=== PATIENT | female | born 1955 | race Two or more races ===

== ENCOUNTER 2018-04-09 11:06 | Outpatient (CLI) | payer OTHER | END 2018-04-09 12:22 | disposition home or self-care (01) | LOC: NUCLEAR 11:06 | DX: D35.1 Benign neoplasm of parathyroid gland (principal) | CPT/HCPCS: 78070; A9500 ==

== ENCOUNTER → 2022-11-18 | Outpatient (CLI) | payer OTHER | END | disposition home or self-care (01) | LOC: RAD 13:09 | PROVIDERS: ATTEND Internal Medicine | DX: M79.672 Pain in left foot (principal); M19.90 Unspecified osteoarthritis, unspecified site ==

== ENCOUNTER 2023-11-30 14:56 | Outpatient (CLI) | payer OTHER | END 2023-11-30 15:00 | disposition home or self-care (01) | LOC: RAD 14:56 | PROVIDERS: ATTEND Physical Medicine & Rehabilitation | DX: M54.51 Vertebrogenic low back pain (principal) ==

== ENCOUNTER 2023-12-14 08:12 | Outpatient (CLI) | payer OTHER | END 2023-12-14 08:29 | disposition home or self-care (01) | LOC: MAMO-SONO 08:12 | PROVIDERS: ATTEND Internal Medicine | DX: N60.11 Diffuse cystic mastopathy of right breast (principal); N60.12 Diffuse cystic mastopathy of left breast; Z12.31 Encounter for screening mammogram for malignant neoplasm of breast ==

== ENCOUNTER 2024-12-26 13:04 | Outpatient (CLI) | payer OTHER | END 2024-12-26 13:14 | disposition home or self-care (01) | LOC: MAMO-SONO 13:04 | PROVIDERS: ATTEND Internal Medicine | DX: N60.11 Diffuse cystic mastopathy of right breast (principal); N60.12 Diffuse cystic mastopathy of left breast; Z12.31 Encounter for screening mammogram for malignant neoplasm of breast ==

== ENCOUNTER → 2025-01-04 09:46 | Outpatient (CLI) | payer OTHER | END | disposition home or self-care (01) | LOC: NUCLEAR 09:46 | PROVIDERS: ATTEND Internal Medicine | DX: M81.0 Age-related osteoporosis without current pathological fracture (principal) ==

== ENCOUNTER 2025-01-10 14:15 | Outpatient (CLI) | payer OTHER | END 2025-01-10 14:17 | disposition home or self-care (01) | LOC: RAD 14:15 | PROVIDERS: ATTEND Physical Medicine & Rehabilitation | DX: M16.0 Bilateral primary osteoarthritis of hip (principal) ==